=== PATIENT | female | born 1990 | race Caucasian/White ===

== ENCOUNTER 2016-06-09 00:02 | Inpatient (IN) | payer OTHER ==
[2016-06-09] MEDS ORDERED: OXYTOCIN/DEXTROSE 5%-WATER 30 UNITS/500 ML BAG IV ONE ×2 (00:05→16:06)
[2016-06-09] MEDS ORDERED: PENICILLIN G POTASSIUM 5 MILLIONUNT in DEXTROSE 5 % IN WATER 100 ML IV ONE ×2 (00:05)
[2016-06-09] MEDS ORDERED: LIDOCAINE HCL 50 ML VIAL PERI PRN (00:05)
[2016-06-09] MEDS ORDERED: ONDANSETRON HCL/PF 2 MG/ML VIAL IV PRN (00:05)
[2016-06-09] MEDS ORDERED: RINGERS SOLUTION,LACTATED 1,000 ML IV PRN (00:05)
[2016-06-09] MEDS ORDERED: RINGERS SOLUTION,LACTATED 1,000 ML IV ONE (00:05)
[2016-06-09] MEDS: DEXTROSE 5%-LACTATED RINGERS 1,000 ML IV PRN ×2 (00:45→11:16)
[2016-06-09 00:57] LABS: Urine Appearance Slightly Cloudy; Urine Bilirubin Negative (NEGATIVE); Urine Blood 25 /ul (NEGATIVE); Urine Color Pale Yellow; Urine Ketone Negative (NEGATIVE)
[2016-06-09 00:58] LABS: Urine Bacteria TRACE; Urine Nitrite Negative (NEGATIVE); Urine Protein Negative (NEGATIVE); Urine Urobilinogen Normal (NORMAL)
[2016-06-09 01:06] LABS: Cocaine Ur Negative (NEGATIVE); Urine Barbiturate Negative (NEGATIVE); Urine Benzodiazepines Negative (NEGATIVE); Urine Opiates Negative (NEGATIVE); Urine PCP Negative (NEGATIVE); Urine THC Negative (NEGATIVE)
--- OUTSIDE RECORDS SUMMARY | 2016-06-09 02:09 | XMS REPORT | Continuity of Care Document ---
:1990 Author Organization [facility] ([facility]) Address [place] [address] Phone [phone] Care Team Providers Name Role Phone Unavailable Primary Care Provider Unavailable Source Comments This disclosure is being made pursuant to the Care Everywhere program, applicable federal and state laws, and may not contain all informaitonavailable regarding this patient.[facility] ([facility]) Active Allergies and Adverse Reactions No Active Allergies Current Medications Not on file Active Problems Problem Noted Date Other abnormality of urination(788.69) 02/15/2006 Social History Tobacco Use Types Packs/Day Years Used Date Never Assessed Last Filed Vital Signs Vital Sign Reading Time Taken Blood Pressure 109/66 02/15/2006 3:39 PM [employer] Pulse 89 02/15/2006 3:39 PM [employer] Temperature 35.7 C (96.26 F) 02/15/2006 3:39 PM [employer] Respiratory Rate 28 02/15/2006 3:39 PM [employer] Height 1.7 m (5' 6.92") 02/15/2006 3:39 PM [employer] Weight 56.396 kg (124 lb 5.3 oz) 02/15/2006 3:39 PM [employer] C[employer] Body Mass Index 19.51 02/15/2006 3:39 PM [employer] C[employer] Oxygen Saturation - - Plan of Care Health Maintenance Due Date Last Done Comments Hepatitis B Vaccine (1 of 3 - Primary Series) 1990 HPV Vaccine (1 of 3 - Female/Unknown 3 Dose Series) 2001 Tdap Vaccine 2001 Cervical Cancer Screening 2008 Lipid Disorder Screening 2008 MMR Vaccine 2008 Td Vaccine 2008 Varicella Vaccine (1 of 2 - Adult - No Evidence of 2008 Immunity) Influenza Vaccine: Seasonal (#1) 11/15/2015 Results from Last 3 Months Not on file
[2016-06-09] MEDS: PENICILLIN G POTASSIUM 2.5 MILLIONUNT in DEXTROSE 5 % IN WATER 100 ML IV SCH ×6 (05:10→12:03)
[2016-06-09] MEDS ORDERED: BUTORPHANOL TARTRATE 2 MG/ML VIAL IV PRN (08:53)
--- NOTE | 2016-06-09 08:59 | PN ---
Progess Note - Interim Narrative: 06/09/16 08:54 Subjective-complaining of sciatic pain Objective- SVE- /-, amniotomy performed with clear fluid FHTs-130's, mod storm, early decels, + accels Shambaugh- q2 min on 6 miliunits of pitocin Assessment and plan- Labor- induction with pitocin GBS status- positive, on Pcn Pain control prn Continue current plan of care.
[2016-06-09] MEDS ORDERED: BUPIVACAINE HCL/0.9 % NACL/PF 250 ML EP PRN (11:02)
[2016-06-09] MEDS ORDERED: NALOXONE HCL 1 MG/1 ML SYRG IV PRN (11:02)
[2016-06-09] MEDS ORDERED: BUPIVACAINE HCL/PF 30 ML VIAL EP ONE (11:02)
--- NOTE | 2016-06-09 11:30 | OR ---
Anesthesia Procedure Note - Anesthesia Procedure Note Date of Service: 06/09/16 Narrative: Vital Signs - Last Taken Temp 36.8 C 06/09/16 11:07 Pulse 65 06/09/16 11:07 Resp 18 06/09/16 11:07 BP 132/84 06/09/16 11:07 Pulse Ox 100 06/09/16 11:07 06/09/16 11:29 ANESTHESIA PROCEDURE NOTE Date of Procedure: 06/09/2016. Time of procedure: 1105. Performed by: Nicola De La Torre CRNA Physical Anthropologist: None. Preprocedure diagnosis: Active labor. Post procedure diagnosis: Same. Procedure: Insertion of labor epidural. Indications: The patient is 25 -year-old female in active labor requesting labor epidural for pain management. Findings: See below. Details of the procedure: The patient was placed in a sitting position. DuraPrep as well as Betadine swabs 3 was applied to the patient's back. Patient was then draped in a sterile fashion. Lidocaine 1% was infiltrated to the skin and subcutaneous tissues at the level of the L3 4 interspace. The epidural space was identified using a 18-gauge Tuohy needle with loss-of- resistance technique. Epidural catheter was inserted to a depth of 10 centimeters at skin. Negative test dose was elicited using 3 mL of 1.5% preservative-free lidocaine plus epinephrine 1 200,000. The epidural catheter was then taped and secured in place. A loading dose of 8 mL of 0.25% preservative-free bupivacaine was administered to the epidural catheter after negative aspiration for blood and CSF. EBL: Minimal. Fluids: N/A. Specimen: N/A. Post procedure condition: The patient tolerated the procedure well. No complications were noted. Thank you for this consultation. Nicola De La Torre CRNA
[2016-06-09] MEDS ORDERED: BENZOCAINE/MENTHOL 81 SPRAY CAN TP PRN (16:06)
[2016-06-09] MEDS ORDERED: oxyCODONE HCL/ACETAMINOPHEN 1 TAB TABLET PO PRN ×2 (16:06)
[2016-06-09] MEDS ORDERED: BISACODYL 10 MG SUPP.RECT RC PRN (16:06)
[2016-06-09] MEDS ORDERED: SENNOSIDES 8.6 MG TABLET PO PRN (16:06)
[2016-06-09] MEDS ORDERED: HYDROCORTISONE 30 APPL TUBE TP PRN (16:06)
[2016-06-09] MEDS ORDERED: IBUPROFEN 800 MG TABLET PO PRN (16:06)
[2016-06-09] MEDS ORDERED: GLYCERIN/WITCH HAZEL LEAF 40 APPL BOX TP PRN (16:06)
--- NOTE | 2016-06-09 16:13 | OR ---
Operative Report - Dictated Report Narrative: Spontaneous Vaginal Delivery Viable female with APGARS of 8 at 1 minute and 9 minutes. She delivered at 1546. Presentation was VIK. A nuchal arm was then noted. The posterior left arm was then delivered prior to delivery of the anterior shoulder due to the nuchal arm. A loop of cord was noted. The remainder of the baby was delivered. The baby was placed on the maternal abdomen and spontaneous cry was noted. The cord was clamped and cut after approximately 60 seconds. Weight: 7 pounds 1.1 ounces or 3208 g Placenta was delivered spontaneously and intact. First-degree midline vaginal laceration that was repaired with 3-0 Vicryl and first degree left periurethral that was hemostatic without repair. Estimated blood loss: 200 ml Mother and baby tolerated delivery well. History for Definition: * The number of deliveries resulting in a live the patient experienced prior to current hospitalization * The previous delivery of live twins or any live multiple gestation is considered one live event. *If primagravida or nulliparous is documented select zero for the number of previous live births. Live Events: 0
[2016-06-09] MEDS: DOCUSATE SODIUM 100 MG CAPSULE PO SCH (21:30)
--- NOTE | 2016-06-10 08:10 | PN ---
Progess Note - Interim Narrative: 06/10/16 08:09 progress note Subjective: The patient is doing well. She is ambulating, voiding, tolerating by mouth. She has minimal pain and moderate lochia. Objective: General: No acute distress Abdomen: Soft, nontender, fundus is firm just below the umbilicus Extremities: minimal edema, nontender to palpation Assessment and plan: day 1 Feeding: Breast Pain: Controlled with by mouth medication Routine care.
[2016-06-10] MEDS: DOCUSATE SODIUM 100 MG CAPSULE PO SCH ×2 (09:23→21:25)
[2016-06-11 07:21] VITALS: BP 111/70
--- NOTE | 2016-06-11 08:42 | PN ---
Subjective - Date and Time Seen Date: 06/11/16 Time: 08:41 Objective - Vitals Vitals: Last Vital Signs Temp 37 C 06/11/16 06:50 Pulse 102 H 06/11/16 06:50 Resp 16 06/11/16 06:50 BP 111/70 06/11/16 06:50 Pulse Ox 98 06/11/16 06:50 Patient denies complaints. Bottle feeding Lochia wnl Abdomen - soft, nontender Uterus - firm, at umbilicus - 2 No calf tenderness Impression: day #2 - s/p spontaneous vaginal delivery. Plan: Routine discharge instructions. Follow-up with Dr. Doherty in 4 weeks Cauti Physician Documentation - Urinary Catheter Management Urethral (Velazquez) Date of Insertion: 06/09/16 Time of Insertion: 12:00 Date of Removal: 06/09/16 Time of Removal: 15:22
[2016-06-11] MEDS: DOCUSATE SODIUM 100 MG CAPSULE PO SCH (08:51)
== END 2016-06-11 15:45 | disposition home or self-care (01) | DRG 775 ==
LOC: OB 00:02
PROVIDERS: ADMIT Obstetrics & Gynecology Gynecologic Oncology; ATTEND Obstetrics & Gynecology Gynecologic Oncology
PROC: 10E0XZZ Delivery of Products of Conception, External Approach (ICD-10-PCS; principal; 2016-06-09)
PROC: 3E033VJ Introduction of Other Hormone into Peripheral Vein, Percutaneous Approach (ICD-10-PCS; 2016-06-09)
PROC: 10907ZC Drainage of Amniotic Fluid, Therapeutic from Products of Conception, Via Natural or Artificial Opening (ICD-10-PCS; 2016-06-09)
PROC: 4A1HXCZ Monitoring of Products of Conception, Cardiac Rate, External Approach (ICD-10-PCS; 2016-06-09)
PROC: 0HQ9XZZ Repair Perineum Skin, External Approach (ICD-10-PCS; 2016-06-09)
PROC: 3E0S3CZ (ICD-10-PCS; 2016-06-09)
DX: O48.0 Post-term pregnancy (principal); O69.81X0 Labor and delivery complicated by cord around neck, without compression, not applicable or unspecified; O70.0 First degree perineal laceration during delivery; O99.824 Streptococcus B carrier state complicating childbirth; K08.9 Disorder of teeth and supporting structures, unspecified; Z3A.41 41 weeks gestation of pregnancy; Z37.0 Single live birth